=== PATIENT | male | born 1945 ===

== ENCOUNTER → 2016-11-03 | Outpatient (CLI) | payer OTHER ==
[~2016-11-03] MED LIST: ACEROLA C500 M2 PER TUBE; AMITRIPTYLINE H10 M3 PO; ASPIRIN81 M2 PER TUBE; CENTRUM SILVER1 EAC2 PER TUBE; CHILDREN'S1000 UNIT PER TUBE; GABAPENTIN 100100 MG PER TUBE; JUVEN PACKET1 EACH PER TUBE; KEPPRA1000 MG PER TUBE; MELATONIN5 M1 PO; MIRALAX17 GM PER TUBE; MYSOLINE50 MG PER TUBE; OXYBUTYNIN 5 MG5 M2 PER TUBE; REMERON 30 MG T30 M1 PER TUBE
[2016-11-03 09:29] VITALS: BP 98/62
== END ==
LOC: SPEC 09:25
DX: K94.23 Gastrostomy malfunction (principal); E46 Unspecified protein-calorie malnutrition